=== PATIENT | female | born 1960 | race Caucasian/White ===

== ENCOUNTER 2020-12-11 15:28 | Emergency (ER) | payer MEDICARE, OTHER ==
[~2020-12-11] VITALS: Ht 162.6 cm; Wt 59.9 kg
[2020-12-11] MEDS ORDERED: PREDNISONE20 MG PO (18:19)
[2020-12-11] MEDS ORDERED: ZITHROMAX250 MG PO (18:19)
--- NOTE | 2020-12-11 18:57 | EKG ---
[facility] [address] [facility] [place] [address] Signed Normal sinus rhythm Normal ECG No previous ECGs available Confirmed by AZEEM MOSELEY MD ([id number]) on 12/11/2020 6:57:36 PM Electronically Signed By: AZEEM MOSELEY MD 12/11/20 1857 PATIENT NAME: JUAN DELACRUZ Electrocardiogram DATE OF : 58 PHYSICIAN: AZEEM MOSELEY MD REPORT #: [id number] REPORT IS CONFIDENTIAL AND NOT TO BE RELEASED WITHOUT AUTHORIZATION
== END 2020-12-11 18:40 | disposition home or self-care (01) ==
LOC: ED 15:28
DX: J44.9 Chronic obstructive pulmonary disease, unspecified (principal); I10 Essential (primary) hypertension; Z20.822 Contact with and (suspected) exposure to COVID-19; Z85.43 Personal history of malignant neoplasm of ovary; Z88.5 Allergy status to narcotic agent; Z88.0 Allergy status to penicillin; Z87.891 Personal history of nicotine dependence
CPT/HCPCS: 71045; 80053; 83735; 84484; 85025; 93005; 93010; 94640; 96374; 99285-25; C9803; J1100; U0003